=== PATIENT | female | born 1990 | race Caucasian/White ===

== ENCOUNTER 2025-05-06 08:29 | Day surgery (SDC) | payer BC ==
[2025-05-06] MEDS: Lactated Ringers 1,000 ML IV SCH (09:01)
[2025-05-06] MEDS ORDERED: fentaNYL 100 MCG/2 ML SDV ONE (10:00)
[2025-05-06] MEDS ORDERED: Propofol 200 MG/20 ML SDV ONE ×2 (10:01→11:03)
== END 2025-05-06 12:39 | disposition home or self-care (01) ==
LOC: VM.SDS 08:29
PROVIDERS: ATTEND Family Medicine
DX: K29.50 Unspecified chronic gastritis without bleeding (principal); K31.A11 Gastric intestinal metaplasia without dysplasia, involving the antrum; K21.00 Gastro-esophageal reflux disease with esophagitis, without bleeding; K44.9 Diaphragmatic hernia without obstruction or gangrene; K92.1 Melena; K59.09 Other constipation; E66.9 Obesity, unspecified; Z88.2 Allergy status to sulfonamides; Z98.84 Bariatric surgery status; Z79.899 Other long term (current) drug therapy
CPT/HCPCS: 43239; 45378; J2704; J3010; J7120; 00813